=== PATIENT | male | born 1970 | race Caucasian/White ===

== ENCOUNTER → 2018-02-07 12:06 | Outpatient (CLI) | payer BC, SELFPAY ==
[2018-02-07 12:55] LABS: Alanine Aminotransferase 28 U/L (12-78); Albumin Level 4.4 gm/dL (3.4-5.0); Albumin/Globulin Ratio 1.4 (1.1-1.8); Alkaline Phosphatase 76 U/L (46-116); Anion Gap 12.3 mEq/L (5-15); Aspartate Amino Transferase 20 U/L (15-37); Bilirubin,Total 0.5 mg/dL (0.2-1.0); Blood Urea Nitrogen 17 mg/dL (7-18); Calcium 9.3 mg/dL (8.5-10.1); Carbon Dioxide 28 mmol/L (21.0-32.0); Chloride 106 mmol/L (98-107); Chol/HDL Ratio 4.4 (1-3.5); Cholesterol 191 mg/dL (140-200); Creatinine,Serum 1.23 mg/dL (0.70-1.30); Estimated Glomerular Filt Rate 63 ml/min (>60); GFR (African American) 76 ML/MIN (>60); Globulin 3.1 gm/dl (1.3-3.2); Glucose 137 mg/dL (74-106); HDL Cholesterol 43 mg/dL (27-67); LDL Cholesterol 124 mg/dL (0-130); Potassium 4.3 mmoL/L (3.5-5.1); Sodium 142 mmol/L (136-145); Total Protein,Serum 7.5 gm/dL (6.4-8.2); Triglycerides 119 mg/dL (30-200); VLDL Cholesterol 24 mg/dL (0-40)
[2018-02-07 13:21] LABS: Hemoglobin A1C 6.2 % (0.0-7.0)
== END ==
PROVIDERS: Visit Provider Family Medicine
DX: E78.5 Hyperlipidemia, unspecified (principal); E11.9 Type 2 diabetes mellitus without complications
CPT/HCPCS: 36415; 80053; 80061; 83036

== ENCOUNTER → 2018-08-25 10:05 | Outpatient (CLI) | payer BC, SELFPAY ==
--- NOTE | 2018-08-25 10:18 | XR_ITS ---
XR chest 2V HISTORY: Pain under left pectoralis muscle. ITS.REASON: PRECORDIAL PAIN ORDERING PHYSICIAN: Laura Beltran MD PATIENT AGE: 47 years Technique: PA and lateral chest COMPARISON: No prior chest films . Previous CT abdomen which includes lung bases from March 2000. FINDINGS: No pneumothorax no pleural effusion. The cardiomediastinal silhouette and pulmonary vascularity are within normal limits. The lungs are clear without infiltrates, suspicious nodules, or pleural effusions. No acute bony abnormalities. IMPRESSION: Lungs clear. Nothing definitely acute.
== END ==
PROVIDERS: PCP Emergency Medicine; Visit Provider Emergency Medicine
DX: R07.2 Precordial pain (principal)
CPT/HCPCS: 71046; 93005

== ENCOUNTER → 2018-08-30 08:50 | Outpatient (CLI) | payer BC, SELFPAY | PROVIDERS: PCP Family Medicine; Visit Provider Emergency Medicine | DX: R07.2 Precordial pain (principal) | CPT/HCPCS: 93017 ==

== ENCOUNTER → 2019-03-28 14:27 | Outpatient (CLI) | payer BC, SELFPAY ==
[2019-03-28 15:29] LABS: Hemoglobin A1C 6.2 % (0.0-7.0)
[2019-03-28 15:44] LABS: Alanine Aminotransferase 30 U/L (12-78); Albumin Level 4.4 gm/dL (3.4-5.0); Albumin/Globulin Ratio 1.3 (1.1-1.8); Alkaline Phosphatase 66 U/L (46-116); Anion Gap 10.5 mEq/L (5-15); Aspartate Amino Transferase 16 U/L (15-37); Bilirubin,Total 0.2 mg/dL (0.2-1.0); Blood Urea Nitrogen 22 mg/dL (7-18); Calcium 9.6 mg/dL (8.5-10.1); Carbon Dioxide 30 mmol/L (21.0-32.0); Chloride 104 mmol/L (98-107); Chol/HDL Ratio 4.3 (1-3.5); Cholesterol 185 mg/dL (140-200); Creatinine,Serum 1.08 mg/dL (0.70-1.30); Estimated Glomerular Filt Rate 73 ml/min (>60); GFR (African American) 88 ML/MIN (>60); Globulin 3.3 gm/dl (1.3-3.2); Glucose 127 mg/dL (74-106); HDL Cholesterol 43 mg/dL (27-67); LDL Cholesterol 105 mg/dL (0-130); Potassium 4.5 mmoL/L (3.5-5.1); Sodium 140 mmol/L (136-145); Total Protein,Serum 7.7 gm/dL (6.4-8.2); Triglycerides 183 mg/dL (30-200); VLDL Cholesterol 37 mg/dL (0-40)
== END ==
PROVIDERS: Visit Provider Family Medicine
DX: E11.9 Type 2 diabetes mellitus without complications (principal); E78.5 Hyperlipidemia, unspecified; I10 Essential (primary) hypertension
CPT/HCPCS: 36415; 80053; 80061; 83036

== ENCOUNTER → 2021-03-26 09:43 | Outpatient (CLI) | payer BC, SELFPAY ==
--- NOTE | 2021-03-26 09:46 | XR_ITS ---
PROCEDURE: XR CHEST 2V CLINICAL HISTORY: Encounter for general adult medical examination without abno COMPARISON: CR CXR2V XR chest 2V from 08/25/2018 FINDINGS: The cardiomediastinal silhouette and pulmonary vascularity are within normal limits. The lungs are clear without infiltrates, suspicious nodules, or pleural effusions. No acute bony abnormalities. IMPRESSION: No acute findings. Dictated by: Lefty Saucedo MD 03/26/2021 11:16 Lefty Saucedo MD in [place] 03/26/2021 11:16
== END ==
PROVIDERS: PCP Family Medicine; Visit Provider Family Medicine
DX: Z00.00 Encounter for general adult medical examination without abnormal findings (principal)
CPT/HCPCS: 71046

== ENCOUNTER 2022-02-10 16:51 | Emergency (ER) | payer BC, SELFPAY ==
[2022-02-10 16:52] VITALS: BP 154/103; PULSE 77; RESP 14; TEMP 36.8; O2SAT 97; BMI 29.9
--- NOTE | 2022-02-10 18:13 | HMH.EDDENT ---
ED Disposition Clinical Impression: Pain, dental, Facial cellulitis Disposition: Home, Self-Care Condition on Discharge: Fair Instructions: Cellulitis, Clindamycin Prescriptions: clindamycin HCL [Cleocin HCl] 300 mg PO TID 7 Days #21 cap Prescription Printed Referrals: Jay Smalls MD [Primary Care Provider] - - Critical Care Critical Care Time: No Attestation: On 02/10/22, the high probability of a clinically significant, sudden or life threatening deterioration of the following system(s) required my full and direct attention, intervention and personal management. The time I documented below is in addition to time spent performing reported procedures but includes the following listed in this critical care notation. Medical Decision Making - Medical Records Medical records reviewed: Yes: I reviewed the patient's medical records. - Aaron Inquiry Pt receiving controlled substance: No Aaron was queried for this patient: No Vital Signs: 02/10/22 16:52 Temperature 98.3 F Temperature Source Oral Pulse Rate [Right Radial] 77 Respiratory Rate 14 Blood Pressure [Right Arm] 154/103 H Blood Pressure Mean [Right Arm] 120 Blood Pressure Source [Right Arm] Automatic Cuff Blood Pressure Position [Right Arm] Sitting 02 Sat by Pulse Oximetry 97 Oxygen Delivery Method Room Air Orders (Tests/Meds): ED MEDICATIONS Discontinued Medications Generic Name Dose Route Start Last Admin Trade Name Kirillq PRN Reason Stop Dose Admin Clindamycin HCl 300 mg 02/10/22 18:12 Clindamycin 150mg Capsule PO 02/10/22 18:13 ONCE ONE Dental HPI - General Chief complaint: Dental/Oral Stated complaint: right side facial swelling Time Seen by Provider: 02/10/22 18:20 Mode of Arrival: Ambulatory Limitations: No Limitations Description of Symptoms (Recalled from ER Triage Doc. by RN): Pt presents with swelling to R side of face that began approx 7pm lastnight. Pt reports had a tooth break off on R upper side 3-4 weeks ago, states no issues until lastnight. Pt reports was seen at [facility] in [place] today and was told to come to the ER for possible drainage of area and IV antibiotics. Pt reports they also called him in antibiotics from the dentist. Pt states no pain, only pressure. Pt denies fevers. - History of Present Illness HPI Narrative: 51-year-old male, sent from [facility] for right-sided facial swelling, there was concern about facial or dental abscess, he was ordered antibiotics which she has not yet started. He denies fever, chills, nausea, vomiting, visual change or pain with extraocular movements, denies any pain or swelling in the submandibular space - Related Data Previous Rx's Medication Instructions Recorded clindamycin HCL [Cleocin HCl] 300 mg PO TID 7 Days #21 cap 02/10/22 Allergies Allergy/AdvReac Type Severity Reaction Status Date / Time From Penicillin V Potassium Allergy Unknown Uncoded 07/18/17 14:31 Penicillin Allergy Unknown Uncoded 07/18/17 14:31 [facility] History - Hepatitis A Screen Attestation statement:: This patient has been screened for Hepatitis A risk factors. ROS Obtained: Yes All systems reviewed & no additional complaints - Constitutional Constitutional: Reports system reviewed and no additional complaints, except as docu - Eyes Eyes: Reports system reviewed and no additional complaints, except as docu - ENT Comments: Right-sided facial swelling poor dentition - Cardiovascular Cardiovascular: Reports system reviewed and no additional complaints, except as docu - Respiratory Respiratory: Reports system reviewed and no additional complaints, except as docu - Gastrointestinal Gastrointestingal: Reports: system reviewed and no additional complaints, except as docu - Musculoskeletal Musculoskeletal: Reports system reviewed and no additional complaints, except as docu - Integumentary/Breasts Skin/Breast: Reports s
[2022-02-10 18:59] VITALS: BP 165/102; PULSE 83; RESP 16; TEMP 36.9; O2SAT 98
== END 2022-02-10 19:02 | disposition home or self-care (01) ==
PROVIDERS: Emergency Provider Emergency Medicine; PCP Family Medicine
DX: L03.211 Cellulitis of face (principal); K08.89 Other specified disorders of teeth and supporting structures
CPT/HCPCS: 99283

== ENCOUNTER 2022-11-17 10:02 | Day surgery (SDC) | payer BC, SELFPAY ==
[2022-11-14 14:10] VITALS: BMI 29.9
[2022-11-17 10:26] VITALS: BP 138/99; PULSE 66; RESP 18; TEMP 36.2; O2SAT 99
--- NOTE | 2022-11-17 10:41 | EXP.ANES.CKL ---
[facility] Disclaimer: The information contained in this section may have been updated after the patient was seen, as this information can be updated by other users. Medical History Diabetes mellitus, type 2 Hyperlipidemia Hypertension Surgical History No significant past surgical history Family History Other Colon cancer Family history of cancer Family history of diabetes mellitus type II Social History Smoking Status: Never smoker alcohol intake: current substance use type: denies use current occupational status: employed Travel in the last 8 weeks: None household members: spouse housing: house lives independently: No marital status: education level: high school caffeine: Yes special leo needs: No agree to transfusion: No do you feel safe at home: Yes victim of physical abuse: No victim of emotional abuse: No victim of sexual abuse: No would you like helpful sources: No [facility] Anesthesia Checklist Patient Identification Patient Identification: Arm Band and Verbal (Name & ) Structural Data Admitted From: Home Planned Operative Procedure/s: Colonoscopy Consent for Planned Operative Procedure(s) Verified: Yes NPO Status Verified Time NPO: 00:00 Airway Assessment C-Spine Mobility Assessed: Yes TMJ Mobility Assessed: Yes Dentition: Good Dentition Neurological Assessment Level of Consciousness: Awake Hx Seizures: No Numbness or tingling in extremities: No Anesthesia Plan Anesthesia Risk discussed: Yes Anesthesia Plan: Verified ASA Class: II Anesthesia Type: MAC
[2022-11-17 10:55] VITALS: O2SAT 99
[2022-11-17 10:58] LABS: POC Glucose,Bedside 122 (70-110)
--- NOTE | 2022-11-17 11:17 | HMH.SCOPE ---
Procedure: Date: 11/17/22 Patient Date of :: 1970 Procedure Performed:: Colonoscopy with snare polypectomy Indications:: Screening colonoscopy, family history of colon cancer Performing Provider:: Nestor Nelson MD Referring Provider:: Jalen Smalls MD Sedation:: Propofol Procedure:: After placing the patient in the left lateral decubitus position, the colonoscopy was gently inserted into the rectum and under direct visualization advanced to the cecum which was identified by transillumination in the right lower quadrant, identification of the ileocecal valve, appendiceal orifice, and cecal strap. Color, texture, mucosa, and anatomy of the colon were carefully examined with the scope. Findings:: Anal canal: normal Rectum: normal Sigmoid colon: 0.5 cm adenomatous polyps x 4 identified and removed with snare Descending colon: normal without polyps or inflammatory changes Splenic flexure: normal Transverse colon: normal without polyps or inflammatory changes Hepatic flexure: normal Ascending colon: normal without polyps or inflammatory changes Cecum: normal Terminal ileum: not visualized Impression: Sigmoid polyps x 4 Specimens:: Polyps of the sigmoid Recommendations:: Follow up examination in about THREE years or so, sooner if clinically indicated. Complications:: None Estimated blood obtained (mL): 0
[2022-11-17 11:18] VITALS: BP 94/61; PULSE 88; RESP 18; TEMP 36.4; O2SAT 91
[2022-11-17 11:28] VITALS: BP 109/70; PULSE 87; RESP 18; O2SAT 96
[2022-11-17 11:38] VITALS: BP 119/65; PULSE 85; RESP 19; O2SAT 100
[2022-11-17 11:48] VITALS: BP 122/70; PULSE 86; RESP 18; O2SAT 96
== END 2022-11-17 12:03 | disposition home or self-care (01) ==
PROVIDERS: PCP Family Medicine; Visit Provider Internal Medicine Gastroenterology
PROC: 0DJD8ZZ Inspection of Lower Intestinal Tract, Via Natural or Artificial Opening Endoscopic (ICD-10-PCS; CPT 45378; principal; 2022-11-17 11:00)
DX: Z12.11 Encounter for screening for malignant neoplasm of colon (principal); K63.5 Polyp of colon; Z80.0 Family history of malignant neoplasm of digestive organs; E11.9 Type 2 diabetes mellitus without complications; Z79.899 Other long term (current) drug therapy
CPT/HCPCS: 45385; 82962; J2704